=== PATIENT | female | born 1970 | race Caucasian/White ===

== ENCOUNTER 2022-08-15 09:10 | Outpatient (CLI) | payer OTHER, SELFPAY ==
[2022-08-15 19:17] LABS: Alanine Aminotransferase 36 U/L (6-35); Albumin Level 4.3 g/dL (3.5-5.1); Alkaline Phosphatase 139 U/L (38-126); Anion Gap 6 mmol/L (8-16); Aspartate Amino Transferase 30 U/L (14-36); Bilirubin,Total 0.3 mg/dL (0.2-1.3); Blood Urea Nitrogen 15 mg/dL (7-17); Carbon Dioxide 25 mmol/L (22-30); Chloride 106 mmol/L (98-107); Cholesterol 185 mg/dL (0-200); Estimated Glomerular Filt Rate > 60; Glucose 94 mg/dL (65-110); HDL Direct 52 mg/dL; Hematocrit 43.3 % (37.0-47.0); Hemoglobin 14.2 g/dL (12.0-15.0); Mean Corpuscular HGB Conc 32.8 g/dl (32-36); Mean Corpuscular Hemoglobin 29.3 pg (26-34); Mean Corpuscular Volume 89.3 fl (80-100); Mean Platelet Volume 9.7 fl (7.4-10.4); Platelet Count Result 232 k/mm3 (150-375); Potassium 4.1 mmol/L (3.4-5.0); Red Blood Count 4.85 M/mm3 (4.2-5.4); Red Cell Distribution Width 13.7 % (11.5-14.5); Sodium 137 mmol/L (137-145); Triglycerides 81 mg/dL (<150)
[2022-08-15 19:28] LABS: LDL Cholesterol Direct 95 mg/dL
== END 2022-08-15 09:11 | disposition home or self-care (01) ==
LOC: ANHGOSHLAB 09:11
PROVIDERS: PCP Family Medicine; Visit Provider Physician Assistant Medical
DX: E78.2 Mixed hyperlipidemia (principal); F41.9 Anxiety disorder, unspecified; R53.83 Other fatigue
CPT/HCPCS: 36415; 80053; 80061; 84443; 85027

== ENCOUNTER → 2022-08-15 09:45 | Outpatient (CLI) | payer OTHER, SELFPAY ==
--- NOTE | ~2022-08-15 | XR_ITS ---
Right Shoulder Technique: AP and scapular Y views were obtained. Clinical History: Pain Findings: No fracture or dislocation is seen. Osseous alignment is anatomic. The glenohumeral and acr omioclavicular joint spaces are preserved. Soft tissues are unremarkable. Impression: Unremarkable right shoulder radiographs. Reviewed, dictated and finalized at location [] BASE ADMINISTRATION ASSOCIATE Impression: Unremarkable right shoulder radiographs.
--- NOTE | ~2022-08-15 | XR_ITS ---
AP and lateral views of the right hip Clinical history: Pain Findings: No acute fracture or dislocation is seen. Osseous alignment is anatomic. Right hip and SI j oint spaces are preserved. Soft tissues are unremarkable. Impression: No significant abnormality is seen. Reviewed, dictated and finalized at location [] R WORKER Impression: No significant abnormality is seen.
== END ==
PROVIDERS: PCP Family Medicine; Visit Provider Physician Assistant Medical
DX: M25.551 Pain in right hip (principal); M25.511 Pain in right shoulder
CPT/HCPCS: 73030; 73502

== ENCOUNTER → 2022-08-28 13:32 | Outpatient (CLI) | payer OTHER, SELFPAY ==
--- NOTE | ~2022-08-28 | XR_ITS ---
EXAMINATION:XR_CERV2-3V_CR DATE: 08/28/2022 14:05 INDICATION: Neck pain TECHNIQUE: AP, lateral swimmers, and odontoid views of the cervical spine are provided. COMPARISON: 06/19/2009 FINDINGS: There is straightening of the cervical spine which can be positional or due to muscular spa sm. Alignment is normal. The odontoid is intact. No fracture is identified. The vertebral body height s are normal. There is mild loss of intervertebral disc space height at C5-6. Small degenerative oste ophytes project from the anterior endplates of multiple vertebral bodies. Prevertebral soft tissues a re normal. IMPRESSION: 1. Mild cervical spondylosis without acute findings. Reviewed, dictated and finalized at location L. ER TECH
--- NOTE | ~2022-08-28 | XR_ITS ---
EXAMINATION: XR lumbar spine 2-3V DATE: 08/28/2022 14:05 INDICATION: Low back pain TECHNIQUE: Anteroposterior and lateral views of the lumbar spine, and cone-down lateral view of the l umbosacral junction were obtained. COMPARISON: None. FINDINGS: There are 14 degrees of thoracolumbar levoscoliosis. There is no fracture. There are 2 mm o f anterolisthesis of L4 on L5. There is near complete anterior subluxation of L5 on S1. There is mode rate facet joint osteoarthritis of the lower lumbar spine. IMPRESSION: 1. Near complete anterior subluxation of L5 on S1. Surgical consultation is recommended. Reviewed, dictated and finalized at location L. LING MACHINE OPERATOR IMPRESSION: 1. Near complete anterior subluxation of L5 on S1. Surgical consultation is rec ommended.
== END ==
PROVIDERS: PCP Family Medicine; Visit Provider Physician Assistant Medical
DX: M79.2 Neuralgia and neuritis, unspecified (principal); M54.50 Low back pain, unspecified; S33.39XA Dislocation of other parts of lumbar spine and pelvis, initial encounter; M47.812 Spondylosis without myelopathy or radiculopathy, cervical region
CPT/HCPCS: 72040; 72100

== ENCOUNTER 2022-10-15 09:00 | Outpatient (RCR) | payer OTHER, SELFPAY ==
--- NOTE | 2022-09-02 09:21 | OTOPEVAL1 ---
Assessment and note entered by Yohan Pardo, CLAY/Toby, CHT Evaluation Information Assessment Status Evaluation Diagnosis Bilateral carpal tunnel syndrome Subjective Information Patient reports experiencing symptoms for about 6 months. 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 Right hand dominant. She typically has most of her pain with UE use and notices her arms are painful and tired at the end of the day. Notes difficulties with gripping and opening items and lifting heavier items. Reported Pain Level Pain Score 6,6: Self Report Additional Pain Score Comments Patient reports no pain at rest. Pain increases to 6/10 with wrist motion, particularly when radially deviating. She describes all pain as tightness and sore . No reports of tingling . Assessment OT Clinical Summary Fartun is a 52 year-old, right hand dominate female who is referred to hand therapy with gradual increase pain and weakness that has been going on for about 6 months. She has tightness with ROM of the wrists, positive Rohit's bilaterally, signs/symptoms of left lateral epicondylitis, and pain with radial nerve tensioning on the left as well. She will benefit from skilled OT for education and training on ergonomics, ROM, stretching, manual soft tissue mobilzation, and eventually strengthening to facilitate optimal functional use of B UEs. Plan of Care Interventions Therapeutic Exercise,Manual Therapy,Therapeutic Activities,Hot Pack/Cold Pack,Ultrasound,Paraffin OT Services Indicated Yes Treatment Frequency and 1-2x/week for 4 weeks. Duration These treatments will address the objective and functional deficits as defined above. The patient will be advanced safely and appropriately in order for the patient to progress towards his/her prior level of function. Additional exercises will be introduced and as well as a comprehensive home exercise program upon discharge, if needed, ?to ensure carryover of functional gains achieved in the clinic. This treatment plan has been reviewed and agreement upon by the patient.
--- NOTE | 2022-09-17 14:55 | PTOPEVAL1 ---
Assessment and note entered by Eavn Alston, PT Evaluation Information Assessment Status Evaluation Diagnosis R shoulder and hip pain Onset 3 months ago Subjective Information Patient reports R shoulder pain for 3 months and little longer 1 year for the R hip, she has had X- rays that she reports does not show any arthritis in the shoulder or hip, but that she thinks both are connected to her neck and back respectively. Neither are radiating. She reports she feels the hip after getting up in the morning or being in prolonged position while she feels the shoulder more after work. Reported Pain Level Pain Score 1,2: Self Report Pain Score 1,2,3,3: Self Report Additional Pain Score Comments L elbow, SHU wrist, R shoulder, R hip Assessment PT Clinical Summary Fartun is a 52 year old female coming into the clinic for R shoulder and R hip pain. She has decreased strength in SHU hips along with tenderness over the R greater trochanter. Patient 's neck and back appear fine and should not be causing radiating symptoms to either the shoulder or hip. The shoulder appears to have a positive response to the lift off test otherwise negative. Physical therapy will work on educating patient on posture, scapular and hip strengthening to go along with manual therapy and modalities for pain. Plan of Care Interventions Electrical Stimulation,Gait Training,Hot Pack/Cold Pack,Manual Therapy,Neuro Re-education,Patient/ Caregiver Education,Therapeutic Activities, Therapeutic Exercise Other Interventions taping PT Services Indicated Yes Treatment Frequency and 1x/wk for 4 weeks Duration These treatments will address the objective and functional deficits as defined above. The patient will be advanced safely and appropriately in order for the patient to progress towards his/her prior level of function. Additional exercises will be introduced and as well as a comprehensive home exercise program upon discharge, if needed, ?to ensure carryover of functional gains achieved in the clinic. This treatment plan has been reviewed and agreement upon by the patient.
--- NOTE | 2022-09-30 14:53 | OTOPDC ---
Assessment and note entered by Yohan Pardo, CLAY/Toby, CHT Evaluation Information Assessment Status Discharge Subjective Information Patient reports no longer experiencing elbow pain. She continues to report wrist/thumb pain on a daily basis. She does state the pain now does get down to 0/10 occasionally. She has not been able to wear wrist immobilizers, reporting that they are in the way of her fingers. She is ordering new ones that are shorter and just immobilize the thumb. She continues to have positive Rohit's bilaterally. Wrist ROM has improved to normal limits. Right service superintendent strength improved by 9 lbs. Left service superintendent strength remained unchanged. All testing for carpal tunnel syndrome were negative. Reported Pain Level Pain Score 3,3,0: Self Report Additional Pain Score Comments Bilateral wrist pain, localized to the 1st dorsal compartment. Assessment OT Clinical Summary Fartun is a 52 year-old, right hand dominate female who is referred to hand therapy with gradual increase pain and weakness that has been going on for about 6 months. She reports overall reduction in pain, but continues to have bilateral wrist pain on a daily basis. She reports that she will continue to complete her HEP and wear wrist braces to help with pain. Recommended to her and her dr' s office that she receives steroid injections in the 1st dorsal compartment bilaterally. Discharging today with patient independent with HEP. Plan of Care OT Services Indicated No
--- NOTE | 2022-10-15 09:47 | PTOPDC ---
Assessment and note entered by Evan Alston, PT Evaluation Information Assessment Status Discharge Diagnosis R shoulder and R hip pain Onset 4 months ago for the shoulder, 1 year for the hip pain Subjective Information Patient reports improvement in both. States her wrists are her main issues and she got new braces and potentially getting an injection for that. Patient reports she knows the exercises she needs to do to help herself and that although the manual helps she feels like it is not important enough to keep coming back to therapy. Is okay with being discharged from skilled physical therapy. Reported Pain Level Pain Score 2,2,2,2: Self Report Additional Pain Score Comments Patient states she has been at a 2 for the worst this last week in the hip and R shoulder. Assessment PT Clinical Summary Fartun is a 52 year old female coming into the clinic for R hip and shoulder pain. She reports that they are both feeling a lot better and she has met her pain goals, no longer has a positive lift off test, met her lower trap strength goal, and met a majority of her hip strengthening goal. At this time the patient appears that she will be able to do well with her HEP and does not need to come into the clinic. Discharged from skilled physical therapy. Plan of Care PT Services Indicated No Treatment Frequency and discharged from skilled physical therapy. Duration
== END 2022-10-15 11:02 | disposition home or self-care (01) ==
LOC: ANHPT 09:00
PROVIDERS: PCP Family Medicine; Visit Provider Physician Assistant Medical
DX: G56.03 Carpal tunnel syndrome, bilateral upper limbs (principal)
CPT/HCPCS: 97018; 97035; 97110; 97112; 97140; 97161; 97165; 97530

== ENCOUNTER 2023-10-01 09:48 | Outpatient (CLI) | payer OTHER, SELFPAY ==
[2023-10-01 13:33] LABS: Alanine Aminotransferase 28 U/L (6-35); Alkaline Phosphatase 129 U/L (38-126); Anion Gap 9 mmol/L (8-16); Aspartate Amino Transferase 33 U/L (14-36); Bilirubin,Total 0.5 mg/dL (0.2-1.3); Blood Urea Nitrogen 18 mg/dL (7-17); Calcium 9.3 mg/dL (8.4-10.2); Carbon Dioxide 25 mmol/L (22-30); Chloride 107 mmol/L (98-107); Cholesterol 198 mg/dL (0-200); Estimated Glomerular Filt Rate > 60; Glucose 96 mg/dL (65-110); HDL Direct 49 mg/dL; Sodium 141 mmol/L (137-145); Triglycerides 94 mg/dL (<150)
[2023-10-01 13:44] LABS: LDL Cholesterol Direct 122 mg/dL
== END 2023-10-01 09:49 | disposition home or self-care (01) ==
LOC: ANHGOSHLAB 09:51
PROVIDERS: PCP Family Medicine; Visit Provider Physician Assistant Medical
DX: E78.2 Mixed hyperlipidemia (principal); M99.13 Subluxation complex (vertebral) of lumbar region
CPT/HCPCS: 36415; 80053; 80061

== ENCOUNTER 2023-10-01 13:12 | Outpatient (CLI) | payer OTHER, SELFPAY ==
--- NOTE | ~2023-10-01 | XR_ITS ---
XR lumbar spine 2-3V DATE: 10/01/2023 13:50 INDICATION: Near complete anterior subluxation at L5-S1 TECHNIQUE: Supine AP, lateral, coned lateral lumbosacral views COMPARISON: None FINDINGS: Again noted is severe anterolisthesis of L5-S1, essentially unchanged since 08/28/2022. The lumbar vertebrae are otherwise normally aligned. There is mild levoscoliosis of the lower thoraci c and lumbar spine. With the exception of expected bilateral L5 pars interarticularis defects, no lumbar spine fracture o r bone destruction is noted. The sacral iliac joints are intact. IMPRESSION: Persistent severe anterolisthesis of L5-S1 Reviewed, dictated and finalized at location L. ILLERY MILLER
--- NOTE | ~2023-10-01 | XR_ITS ---
XR sacrum coccyx min 2V DATE: 10/01/2023 13:50 INDICATION: Severe anterolisthesis at L5-S1 TECHNIQUE: AP, angled AP and lateral views of sacrum and coccyx COMPARISON: None FINDINGS: Severe anterolisthesis at L5-S1. No sacral or coccygeal fracture or bone destruction is evident. Normal alignment at the pubic symphys is and sacroiliac joints. IMPRESSION: Severe anterolisthesis at L5-S1 Reviewed, dictated and finalized at location L. TICS TESTING TECHNICIAN
== END 2023-10-01 13:13 ==
LOC: MICIMG 13:14
PROVIDERS: PCP Physician Assistant Medical; Visit Provider Physician Assistant Medical
DX: M99.13 Subluxation complex (vertebral) of lumbar region (principal)
CPT/HCPCS: 72100; 72220

== ENCOUNTER 2023-10-21 12:51 | Outpatient (CLI) | payer OTHER, SELFPAY ==
--- NOTE | ~2023-10-21 | MR_ITS ---
EXAMINATION: MR lumbar spine wo con DATE: 10/21/2023 13:24 INDICATION: Subluxation complex of lumbar region. Low back pain. TECHNIQUE: Magnetic resonance imaging (MRI) of the lumbar spine was performed without intravenous con trast. Sequences included sagittal T2-weighted FSE, sagittal T2-weighted FS FSE, sagittal T1-weighted FSE, and axial T2-weighted FSE. COMPARISON: Lumbar spine radiographs 10/01/2023 FINDINGS: There is 18 degrees levoscoliosis of thoracolumbar spine. There are chronic bilateral L5 pa rs defects. There is 15 mm anterolisthesis of L5 on S1. There is mild chronic height loss of L5 verte bral body posteriorly. There is severely decreased disc height at L5-S1 with interbody fusion. There is mildly decreased disc height at L3-L4. The distal spinal cord signal intensity is normal. The conu s medullaris is at T12. The following disc levels are specifically discussed: L1-L2: The disc does not extend beyond the endplate margin. There is mild bilateral facet joint osteo arthritis. There is no neural foraminal stenosis. There is no central canal stenosis. L2-L3: There is a left foraminal protrusion. There is mild bilateral facet joint osteoarthritis. Ther e is mild left neural foraminal stenosis. There is no central canal stenosis. L3-L4: The disc is bulging. There is mild bilateral facet joint osteoarthritis. There is mild bilater al neural foraminal stenosis. There is mild central canal stenosis. L4-L5: The disc is bulging. There is severe bilateral facet joint osteoarthritis. There is mild bilat eral neural foraminal stenosis. There is no central canal stenosis. L5-S1: There is moderate bilateral facet joint hypertrophy. There is moderate bilateral neural forami nal stenosis. There is no central canal stenosis. IMPRESSION: 1. Moderate lower lumbar spondylosis. 2. Interbody fusion at L5-S1. 3. Thoracolumbar levoscoliosis. Reviewed, dictated and finalized at location E. CTOR OF MANUFACTURING
== END 2023-10-21 12:52 ==
PROVIDERS: PCP Physician Assistant Medical; Visit Provider Physician Assistant Medical
DX: M99.13 Subluxation complex (vertebral) of lumbar region (principal); M43.06 Spondylolysis, lumbar region; M43.27 Fusion of spine, lumbosacral region; M41.85 Other forms of scoliosis, thoracolumbar region
CPT/HCPCS: 72148

== ENCOUNTER 2024-12-29 09:08 | Outpatient (CLI) | payer OTHER, SELFPAY ==
--- OUTSIDE RECORDS SUMMARY | 2024-12-29 09:27 | XMS_ITS | Data Portability ---
Author Organization [facility] [place] Address [address] [place] [address] Care Team Providers Care Air Tube Releaser Name Role Phone PERLA RAMON Primary Care Provider [phone] Assessment Encounter Date Assessment Date Assessment LastModified by Organization Details LastModified Time 09/24/2021 09/24/2021 Annual gynecological exam performed. Patient will come back in a year unless there are new symptoms. Not available 09/24/2021 09:59:50 10/21/2022 10/21/2022 Annual gynecological exam performed. Patient will come back in a year unless there are new symptoms. [email or web address] Not available 10/21/2022 09:53:59 10/22/2023 10/22/2023 Annual gynecological exam performed. Patient will come back in a year unless there are new symptoms. Not available 10/22/2023 11:26:39 11/10/2024 11/10/2024 Annual gynecological exam performed. Patient will come back in a year unless there are new symptoms. [email or web address] Not available 11/10/2024 10:32:57 Plan of Treatment Reminders Order Date Submit Date Provider Last Modified By Organization Details Last Modified Time Details Appointments None recorded. Lab pap, IG + HR HPV - HPV regardless but if HPV is positive need subtyping 16,18/45 2024 025 [facility] (Lab), [address], [place], [address], 15:41:43 TSH, serum or plasma 2021 022 [facility] (Lab), [address], [place], [address], 2 03:06:24 hormone panel, serum or plasma 2021 022 [facility] (Lab), [address], [place], [address], 2 03:06:24 Referral None recorded. Procedures colonoscop y procedure (PROC) 2024 025 [facility], [id number], [place], [address], 5 11:19:36 Surgeries None recorded. Imaging MAMMO, screening, digital, bilateral 2024 025 [facility], [id number], [place], [address], 5 04:02:51 MAMMO, screening, bilateral [address], [id number], [place], [address], 5 09:13:01 Medication Orders Prempro 0.3 mg-1.5 mg tablet 2022 023 [facility], [address], [place], [address], 3 12:05:45 Patient TargetsNo targets recorded. Patient InstructionsNo instructions recorded. Reason for Referral None Reported. Results Created Date Observation Date Name Description Value Unit Range Abnormal Flag Note LastModifiedBy Organization Detail LastModifiedTime 09/24/19 22 09/24/2021 IMAGE GUIDE D PAP AND HPV REGAR DLESS image guided Pap, HPV regardless of Pap result SEE RESULT S BELOW CASE REPOR T: Cytol ogy Gynec ologi neal Repor t Case: [id number] Autho daraolman marva Provi eloisa: Avery Buitrago Colle cted: 09/24 1522 CREATIVE ART DIRECTOR Order ing Locat ion: [place] Patho logy Recei ivone: 09/25 0057 First Scree n: Ashley Barton ret, CT Rescr een: Werner Robin, CT Speci men: Lorenzo starkey Pap - Image d, Cervi x STATE MENT OF ADEQU ACY: Satis facto ry for evalu ation Trans forma tion zone compo nent prese nt FINAL DIAGN OSIS: Negat estefani for Intra epith elial Malachi thurman or Orion desai (NIL) . Elect bharat lutz bryce d by Werner Robin, CT on 022 at 3:09 PM ----- ----- ----- ----- ----- ----- ----- ----- ----- ----- ----- ----- ----- ----- ----- ----- ----- ---- HPV RESUL TS: HPV mRNA E6/E7 : No HPV mRNA Detec tanesha NOTE: This high risk HPV mRNA assay detec ts fourt een high- risk HPV types (16, 18, 31, 33, 35, 39, 45, 51, 52, 56, 58, 59, 66, 68) witho ut diffe renti ation . COMME NT: Note: This speci men was revie wed by a Cytot echno logis t and/o r Patho logis t (as indic ated in this repor t) after evalu ation using the Thinp rep Imagi ng Syste m. CLINI NEAL INFOR MATIO N: Menst rual Statu s: LMP (if appli cable ): Clini neal Histo ry/Pr eviou s Pap: Type of Neopl aissatou (if appli cable ): Signi fican t Clini neal Findi ngs: Other Histo ry: Hormo roni (if appli cable ): PAP EDUCA FAVIO L NOTE: The Pap Test is a scree jaky test with an inher ent false negat estefani rate. Liqui d-bas ed sampl ing may decre ase, but will not elimi tom, false negat estefani resul ts. A negat estefani resul t does not precl ude the prese nce and/o r devel opmen t of disea se, since the prese nce of abnor mal cells in the sampl e depen ds on the locat ion of the lesio n and sampl ing techn ique. Hiren nued regul ar scree jaky is the best metho d of cance r preve ntion . If repor tanesha cytol ogic findi ng do not corre late with physi neal and/o r histo rical findi ngs, furth er inves tigat ion is recom tiago d, as clini gutierrez gutiérrez nted. Not Available [facility] (Lab) [address], [place], [address], 10/01/2021 16:11:47 12/24/19 22 12/23/2021 TSH, REFLE X FREE T4 TSH 2.00 uIU/m L 0.30-5 .33 Not Available [facility] (Lab) [address], [place], [address], 12/24/2021 03:06:24 12/24/19 22 12/23/2021 FSH, LH, ESTRA DIOL estradiol <5.0 pg/mL This assay was perfo rmed using [employer] ratio n reage nts and test kits. Value s obtai shakira with other assay metho ds or kits canno t be used inter cisse eably . Femal e Estra diol Range s: Folli cular phase 12.4- 233 pg/mL Ovula tion phase 41.0- 398 pg/mL Lutea l phase 22.3- 341 pg/mL Postm enopa usal< 5-138 pg/mL Healt hy Pregn ant Women 1st Trime ster1 54-32 43 pg/mL 2nd Trime ster1 561-2 1280 pg/mL 3rd Trime ster8 525-> 18712 pg/mL Not Available [facility] (Lab) [address], [place], [address], 12/24/2021 03:06:24 12/24/19 22 12/23/2021 FSH, LH, ESTRA DIOL FSH 107.0 mIU/m L This assay was perfo rmed using [employer] reage nts and test kits. Value s obtai shakira with other assay metho ds or kits canno t be used inter cisse eably . Femal es Folli cular : 3.5-1 2.5 mIU/m L Ovula tion: 4.7-2 1.5 mIU/m L Lutea l: 1.7-7 .7 mIU/m L Postm enopa use: 25.8- 134.8 mIU/m L Not Available [facility] (Lab) [address], [place], [address], 12/24/2021 03:06:24 12/24/19 22 12/23/2021 FSH, LH, ESTRA DIOL LH 50.2 mIU/m L This assay was perfo rmed using [employer] reage nts and test kits. Value s obtai shakira with other assay metho ds or kits canno t be used inter [facility] eaeunice . Femal es Mid-F ollic ular: 2.4-1 2.6 mIU/m L Mid-C ycle: 14.0- 95.6 mIU/m L Mid-L uteal : 1.0-1 1.4 mIU/m L Postm enopa use: 7.7-5 8.5 mIU/m L Not Available [facility] (Lab) [address], [place], [address], 12/24/2021 03:06:24 10/21/19 23 10/21/2022 IMAGE GUIDE D PAP AND HPV REGAR DLESS image guided Pap, HPV regardless of Pap result SEE RESULT S BELOW CASE REPOR T: Cytol ogy Gynec ologi neal Repor t Case: [id number] Autho aman durham Provi eloisa: Avery Buitrago Colle cted: 10/21 1414 CREATIVE ART DIRECTOR Order ing Locat ion: [place] Patho logneelima Recei ivone: 10/22 0748 First Scree n: Ashutosh Bowers ed, CT Speci men: Lorenzo starkey Pap - Image d, Cervi x STATE MENT OF ADEQU ACY: Satis facto ry for evalu ation Trans forma tion zone compo nent canno t be defin itive ly ident ified due to the prese nce of atrop hy or other hormo nal cisse es FINAL DIAGN OSIS: Negat estefani for Intra epith elial Lesio n or Orion desai (NIL) . Atrop hic cell madeline dobson. Tiburcio lutz bryce d by Ashutosh Bowers ed, CT on 2022 at 8:04 PM ----- ----- ----- ----- ----- ----- ----- ----- ----- ----- ----- ----- ----- ----- ----- ----- ----- ---- HPV RESUL TS: HPV mRNA E6/E7 : No HPV mRNA Detec tanesha NOTE: This high risk HPV mRNA assay detec ts fourt een high- risk HPV types (16, 18, 31, 33, 35, 39, 45, 51, 52, 56, 58, 59, 66, 68) witho ut diffe renti ation . COMME NT: Note: This speci men was revie wed by a Cytot echno logis t and/o r Patho logis t (as indic ated in this repor t) after evalu ation using the Thinp rep Imagi ng Syste m. CLINI NEAL INFOR MATIO N: Menst rual Statu s: LMP (if appli cable ): Clini neal Histo ry/Pr eviou s Pap: Type of Neopl aissatou (if appli cable ): Signi fican t Clini neal Findi ngs: Other Histo ry: Hormo roni (if appli cable ): PAP EDUCA FAVIO L NOTE: The Pap Test is a scree jaky test with an inher ent false negat estefani rate. Liqui d-bas ed sampl ing may decre ase, but will not elimi tom, false negat estefani resul ts. A negat estefani resul t does not precl ude the prese nce and/o r devel opmen t of disea se, since the prese nce of abnor mal cells in the sampl e depen ds on the locat ion of the lesio n and sampl ing techn ique. Hiren nued regul ar scree jaky is the best metho d of cance r preve ntion . If repor tanesha cytol ogic findi ng do not corre late with physi neal and/o r histo rical findi ngs, furth er inves tigat ion is recom tiago d, as clini gutierrez gutiérrez nted. Not Available [facility] (Lab) [address], [place], [address], 10/23/2022 21:11:15 10/22/19 24 10/22/2023 IMAGE GUIDE D PAP AND HPV REGAR DLESS image guided Pap, HPV regardless of Pap result SEE RESULT S BELOW CASE REPOR T: Cytol ogy Gynec ologi neal Repor t Case: [id number] Autho aman durham Provi eloisa: Avery Buitrago Colle cted: 10/22 1352 CREATIVE ART DIRECTOR Order ing Locat ion: [place] Patho logy Recei ivone: 10/23 0635 First Scree n: Noora ni, Moham ed, CT Rescr een: Robin Paez Speci men: Scree jaky Pap - Image d, Cervi x STATE MENT OF ADEQU ACY: Unsat isfac tory for evalu ation . FINAL DIAGN OSIS: Unsat isfac tory for evalu ation . Scant squam ous cellu larit y due to exces s inter ferin g nelsyri cant. Elect bharat lutz bryce d by Robin Paez on 2023 at 8:42 AM ----- ----- ----- ----- ----- ----- ----- ----- ----- ----- ----- ----- ----- ----- ----- ----- ----- ---- HPV RESUL TS: HPV mRNA E6/E7 : No HPV mRNA Detec tanesha NOTE: This high risk HPV mRNA assay detec ts fourt een high- risk HPV types (16, 18, 31, 33, 35, 39, 45, 51, 52, 56, 58, 59, 66, 68) witho ut diffe renti ation . COMME NT: This speci men was revie wed by a Cytot echno logis t and/o r Patho logis t (as indic ated in this repor t) after evalu ation using the Thinp rep Imagi ng Syste m. 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 Atrop hic cell madeline rn. Elect bharat wu d by Monie Pisano, CT on 2024 at 1437 CDT ----- ----- ----- ----- ----- ----- ----- ----- ----- ----- ----- ----- ----- ----- ----- ----- ----- ---- HPV RESUL TS: HPV mRNA E6/E7 : No HPV mRNA Detec tanesha NOTE: This high risk HPV mRNA assay detec ts fourt een high- risk HPV types (16, 18, 31, 33, 35, 39, 45, 51, 52, 56, 58, 59, 66, 68) witho ut diffe renti ation . COMME NT: This speci men was revie wed by a Cytot echno logis t and/o r Patho logis t (as indic ated in this repor t) after evalu ation using the Thinp rep Imagi ng Syste m. CLINI NEAL INFOR MATIO N: Menst rual Statu s: LMP (if appli cable ): Clini neal Histo ry/Pr eviou s Pap: Type of Neopl aissatou (if appli cable ): Signi ficlolita t Clini neal Findi ngs: Other Histo ry: Hormo roni (if appli cable ): PAP EDUCA FAVIO L NOTE: The Pap Test is a scree jaky test with an inher ent false negat estefani rate. Liqui d-bas ed sampl ing may decre ase, but will not elimi tom, false negat estefani resul ts. A negat estefani resul t does not precl ude the prese nce and/o r devel opmen t of disea se, since the prese nce of abnor mal cells in the sampl e depen ds on the locat ion of the lesio n and sampl ing techn ique. Hiren nued regul ar scree jaky is the best metho d of cance r preve ntion . If repor tanesha cytol ogic findi ng do not corre late with physi neal and/o r histo rical findi ngs, furth er inves tigat ion is recom tiago d, as clini gutierrez gutiérrez nted. Not Available [facility] (Lab) [address], [place], [address], 11/15/2024 15:41:43 01/17/20 22 01/16/2022 MAMMO , scree jaky, bilat eral No observ ation record ed. [facility] [address] [place] [address], [address], 01/31/2022 11:41:58 Result Notes None recorded. Problems Name Problem SNOMED Code Status Onset Date Resolution Date Notes Provider Name and Address Organization Details Recorded Time Screenin g for malignan t neoplasm of cervix Completed 201109/23/2021 Pap Smear;Pra ctice ID: 0001 Stacie barr [facility] 2 19:53:58 Screenin g for malignan t neoplasm of rectum Completed 201109/23/2021 Screening for malignant neoplasms of the rectum;Pr actice ID: 0001 Stacie barr [facility] 2 19:54:01 Irregula r periods [id number] Completed 201209/23/2021 Irregular menstrual cycle;Pra ctice ID: 0001 Stacie barr [facility] 2 19:53:38 Speciali zed medical examinat ion Completed 201209/23/2021 Routine gynecolog ical examinati on;Practi ce ID: 0001 Stacie barr [facility] 2 19:54:10 Noninfla mmatory cervical disorder [id number] Completed 201309/23/2021 Other specified noninflam matory disorders of cervix;Pr actice ID: 0001 Stacie barr [facility] 19:53:43 Premenop ausal menorrha bianka Completed 201309/23/2021 Premenopa usal menorrhag ia;Practi ce ID: 0001 Stacie barr [facility] 19:53:55 Pre-surg kole evaluati on Completed 201309/23/2021 Pre-opera tive examinati on, unspecifi ed;Practi ce ID: 0001 Stacie barr [facility] 19:53:51 Uterine leiomyom a [id number] Completed 201309/23/2021 Leiomyoma of uterus, unspecifi ed;Practi ce ID: 0001 Stacie barr [facility] 19:54:13 Postoper ative follow-u p visit Completed 201309/23/2021 Follow Up Surgery;Octavio bhakta ID: 0001 Stacie barr [facility] 2 19:53:48 Overweig ht [id number] Completed 201409/23/2021 Overweigh t;Practic e ID: 0001 Stacie barr [facility] 2 19:53:[address] Concept Completed 201509/23/2021 Encntr for precision lens polisher exam (general) (routine) w/o abn findings; Practice ID: 0001 Stacie barr [facility] 2 19:54:07 Atypical squamous cells of undeterm ined signific ance on cervical Papanico laou smear [id number] Completed 201809/23/2021 Atyp squam cell of undet signfc cyto smr crvx (ASC-US); Practice ID: 0001 Stacie Mcdonald [facility] 2 19:53:25 Benign neoplasm of skin of trunk [id number] Completed 201709/23/2021 Other benign neoplasm of skin of trunk;Pra ctice ID: 0001 Stacie Mcdonald [facility] 2 19:53:27 Finding by site Completed 201709/23/2021 Dermatiti s, unspecifi ed;Practi ce ID: 0001 Stacie Mcdonald [facility] 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 2 19:53:[address] Concept Completed 201709/23/2021 Encntr for general adult medical exam w/o abnormal findings; Recorded Elsewhere : No Locati on: [facility] So urce: EHR Chron ic: N Practic e ID: 0001 Bill able Time: 08:30:00 AM Stacie Mcdonald [facility] 2 19:54:03 Disorder of skin and/or subcutan eous tissue 78651803 Completed 201709/23/2021 Disorder of the skin and subcutane ous tissue, unspecifi ed;Record ed Elsewhere : No Locati on: [facility] So urce: EHR Chron ic: N Practic e ID: 0001 Bill able Time: 02:00:00 PM Stacie Mcdonald null, [facility] 2 19:53:32 Body mass index 25-29 - overweig [id number] Completed 201709/23/2021 Body mass index (BMI) 29.0-29.9 , adult;Rec orded Elsewhere : No Locati on: [facility] So urce: EHR Chron ic: N Practic e ID: 0001 Bill able Time: 08:30:00 AM [facility] 19:53:29 Problem Notes None recorded. Procedures Surgical History Date Name Laterality Status Provider Name and Address Organization Details Recorded Time 10/22/19 24 Date of Last Pap Smear completed [facility] 10/22/2023 11:30:31 08/31/19 14 hysteroscopy completed [facility] 09/15/2020 09:27:40 08/31/19 11 biopsy of breast completed [facility] 09/15/2020 09:27:03 08/31/18 92 LEEP completed [facility] 10/22/2023 11:31:52 Imaging Results Imaging Date Name Status LastModified by Organiz ation Details LastModified Time 01/16/2022 MAMMO, screening, bilateral completed [facility] [address] [place] [address], [address], 01/31/2022 11:41:58 Procedure Notes None recorded. Medical Equipment None Reported. Allergies No known drug allergies Medications Name Sig Start Date Stop Date Status Note LastModified by Organization Details LastModified Time cyclobenz aprine 10 mg tablet TAKE 1 TABLET BY MOUTH THREE TIMES A DAY NEEDED FOR MUSCLE SPASM 01/27 completed Not Available Not Available Not Available Aviane 0.1 mg-20 mcg tablet take 1 tablet by oral route every day 06/25 completed Prescrib ed Elsewher e: No Locat ion: [facility] M odify By: gmedical Encount er DateTime : 04/21/20 12 10:09:17 AM Not Available Not Available Not Available Apri 0.15 mg-0.03 mg tablet TAKE 1 TABLET BY MOUTH EVERY DAY 09/24 completed Not Available Not Available Not Available meloxicam 15 mg tablet TAKE 1 TABLET BY MOUTH DAILY 10/21 completed Not Available Not Available Not Available Edith (28) 3 mg-0.03 mg tablet take 1 tablet by oral route every day 04/21 completed Prescrib ed Elsewher e: No Locat ion: Vivien neff [facility] M odify By: gmedical Encount er DateTime : 12/12/19 12 08:43:12 AM Not Available Not Available Not Available naproxen 500 mg tablet TAKE 1 TABLET BY MOUTH 2 TIMES PER DAY. TAKE WITH FOOD. 10/22 completed Not Available Not Available Not Available Prempro 0.3 mg-1.5 mg tablet TAKE 1 TABLET BY MOUTH EVERY DAY FOR 30 DAYS 01/27 completed Not Available Not Available Not Available sodium fluoride 1.1 % dental paste USE A PEA SIZE AMOUNT TO BRUSH TEETH EVERY NIGHT AND EXPECTOR ATE active Not Available Not Available No t Available Lo Loestrin Fe 1 mg-10 mcg (24)/10 mcg (2) tablet take 1 tablet by oral route every day 04/21 completed Prescrib ed Elsewher e: Yes Loca tion: [facility] M odify By: gmedical Encount er DateTime : 12/23/19 12 08:30:00 AM Not Available Not Available Not Available Flublok Quad (PF) 180 mcg (45 mcg x 4)/0.5 mL IM syringe PHARMACY ADMINIST ERED 09/17 completed Not Available Not Available Not Available Vitals Date Recorded Body height Body mass index (BMI) Body weight Systolic blood pressure Diastolic blood pressure Provider Name and Address Organization Details Last Updated DateTime 09/24/2021 162.56 cm 31.4 kg/m2 84723.4 g 140 mm[Hg] 80 mm[Hg] Stacie Mcdonald [facility] 10:02:31 Date Recorded Systolic blood pressure Diastolic blood pressure Provider Name and Address Organization Details Last Updated DateTime 09/24/2021 124 mm[Hg] 80 mm[Hg] Subha Monk [facility] [address], [place], [address], [facility] 09/24/2021 10:32:45 Date Recorded Body height Body mass index (BMI) Body weight Provider Name and Address Organization Details Last Updated DateTime 10/21/2022 162.56 cm 33.6 kg/m2 53066.1 g Ursula Leal [facility] 10/21/2022 09:54:08 Date Recorded Systolic blood pressure Diastolic blood pressure Provider Name and Address Organization Details Last Updated DateTime 10/21/2022 126 mm[Hg] 78 mm[Hg] Subha Monk [facility] [address], [place], [address], [facility] 10/21/2022 10:42:33 Date Recorded Body height Body mass index (BMI) Body weight Provider Name and Address Organization Details Last Updated DateTime 01/27/2023 162.56 cm 33.5 kg/m2 86875.51 g Blanca Medina [facility] 01/27/2023 12:05:13 Date Recorded Systolic blood pressure Diastolic blood pressure Provider Name and Address Organization Details Last Updated DateTime 01/27/2023 130 mm[Hg] 80 mm[Hg] Subha Monk [facility] [address], [place], [address], [facility] 01/27/2023 12:14:35 Date Recorded Body height Body mass index (BMI) Body weight Systolic blood pressure Diastolic blood pressure Provider Name and Address Organization Details Last Updated DateTime 10/22/2023 162.56 cm 33.4 kg/m2 65225.08 g 113 mm[Hg] 74 mm[Hg] Blanca Medina [facility] 11:29:33 Date Recorded Body height Body mass index (BMI) Body weight Systolic blood pressure Diastolic blood pressure Provider Name and Address Organization Details Last Updated DateTime 11/10/2024 162.56 cm 30.7 kg/m2 32294.32 g 139 mm[Hg] 80 mm[Hg] Angela Pope [facility] 10:38:46 Social History Question Answer Notes LastModified by Organizat ion Details LastModified Time Tobacco Smoking Status Never Smoker aMrlene Sawyer cortney, [facility] 01/27/2023 12:00:09 Do You Have An Advance Directive? Yes [email or web address] Information n ot available 11/10/2024 What Is Your Level Of Alcohol Consumption? Occasional Information not available 09/17/2020 How Many Years Have You Consumed Alcohol? 35 [email or web address] Information not available 11/10/2024 Are You Blind Or Do You Have Difficulty Seeing? No Information n ot available 09/23/2021 What Is Your Level Of Caffeine Consumption? Moderate Information not available 09/17/2020 How Much Tobacco Do You Chew? None Information not available 09/24/2021 In The 14 Days Before Symptom Onset, Have You Had Close Contact With A Laboratory-confirm ed COVID-19 While That Case Was Ill? No Information n ot available 09/24/2021 In The 14 Days Before Symptom Onset, Have You Had Close Contact With A Person Who Is Under Investigation For COVID-19 While That Person Was Ill? No Information not available 09/24/2021 Have You Been To An Area Known To Be High Risk For COVID-19? No Information not available 09/24/2021 Are You Deaf Or Do You Have Serious Difficulty Hearing? No Information not available 09/23/2021 What Type Of Diet Are You Following? REGULAR Information n ot available 09/23/2021 What Is The Highest Grade Or Level Of School You Have Completed Or The Highest Degree You Have Received? [id number] Information not available 09/24/2021 What Is Your Occupation? Retired Information not available 10/22/2023 How Many Days Of Moderate To Strenuous Exercise, Like A Brisk Walk, Did You Do In The Last 7 Days? 1 [email or web address] Information not available 01/27/2023 On Those Days That You Engage In Moderate To Strenuous Exercise, How Many Minutes, On Average, Do You Exercise? 60 Information not available 01/27/2023 Are There Any Guns Present In Your Home? No Information not available 09/24/2021 Have You Ever Been Counseled For Unhealthy Alcohol Use? No [email or web address] Information not available 01/27/2023 Do You Use Protection During Sex? No Information not available 09/24/2021 Do You Use Your Seat Belt Or Car Seat Routinely? Yes Information not available 09/23/2021 Do You Have Smoke And Carbon Monoxide Detectors In Your Home? Yes Information not available 09/23/2021 How Much Tobacco Do You Smoke? No Information not available 09/24/2021 Do You Feel Stressed (tense, Restless, Nervous, Or Anxious, Or Unable To Sleep At Night)? [id number] Information not available 09/24/2021 Do You Use Any Illicit Or Recreational Drugs? No Information not available 09/17/2020 Do You Use Sunscreen Routinely? Yes Information not available 09/23/2021 Has Tobacco Cessation Counseling Been Provided? No [email or web address] Information not available 01/27/2023 Have You Used IV Drugs? No Information not available 09/24/2021 Do You Or Have You Ever Used Any Other Forms Of Tobacco Or Nicotine? No Information not available 01/27/2023 How Many Days In The Past Year Have You Consumed 4 Or More Drinks? 0 [email or web address] Information not available 01/27/2023 Sex: Unknown Functional Status Question Answer Note LastModified by Organization D etails LastModified Time Are you able to walk? [email or web address] Information not available 09/23/2021 What is your exercise level? Moderate [email or web address] Information not available 11/10/2024 Mental Status None recorded. Family History Relationship Description Onset Age of this Age Resolved Age Notes LastModified by Organization Details LastModified Time Mother Carcinoma in situ of breast Not available 2024 10:29:08 Mother Lumpectomy of breast [email or web address] Not available 03/13/ 2025 10:29:08 Mother Diabetes mellitus Not available 2020 09:26:10 Mother Retinal detachment [email or web address] Not available 11/10 10:29:08 Mother Myocardial infarction [email or web address] Not available 10/21 09:54:21 Mother Malignant tumor of breast [email or web address] Not available 2022 09:54:22 Paternal Grandmother Carcinoma in situ of breast [email or web address] Not available 2024 10:29:08 Father Hypertensive disorder Not available 2020 09:26:31 Medical History Condition Response Breast Problem Y Other Y Gynecological History Statement/Question Response Abnormal Pap Y Flow Light Date of Last Mammogram Date of LMP 05/31/2021 N On BCP's at Conception? N STIs/STDs N Was last menstrual period normal Y HPV Vaccine N Duration of Flow (days) 3 Current Control Method Menopause Age at First Child 25 If Post Menopausal, Age at Menopause 51 Date of Last Colonoscopy Frequency of Cycle (Q days) 30 Sexually Active? Y None Menses Monthly N Age of first menstrual cycle 12 Date of Last Pap Smear 10/22/2023 Sexual Problems? N LMP Approximate N Obstetrics History GPAL:G 2 P 2 0 0 2 Type Value Full Term 2 Living 2 Total 2 Past Encounters Encounter ID Performer Location Encounter Start Date Encounter Closed Date Diagnosis/Indication Diagnosis SNOMED-CT Code Diagnosis ICD10 Code Diagnosis Note [id number] Subha Monk [facility] [address] [address] 09/17/2020 10:07:20 09/17/2020 10:54:25 Gynecologic examination [id number] Z01.419 Take Calcium with Vitamin D 12-1500mg daily. Do monthly self breast exams. It is advised to get annual flu shot in the fall and she could obtain at [facility] or [facility] clinic. If you haven't received the Tdap vaccine in the last 10 years you should obtain one as well. Have mammogram yearly, bone density every 2-3 years and colonoscop y every 5-10 years depending on findings and history. Engage in daily exercise of low impact aerobic exercise 45-60 minutes 4-5 times weekly. Avoid tobacco and illicit drugs as well as using moderation with alcohol intake less than 1-2 8 oz beverages daily. This lifestyle behavior pattern will lead to less health conditions and longer life span. If BMI greater than 25 weight watchers or dietary consult advised. Questions have been answered. Patient appears to understand instructio ns, but if you have any further questions call or respond to this email Hx of Abn pap/hpv with LEEP Wants to pursue pap/hpv this year. Mammo given UTD Colon We discussed need to d/c OCP's next year since will be 51yo close to 52yo, see if in menpause after 3mos with FSH/LH, and if still need BC can discuss further options at that time. She agrees. [id number] Subha Monk , [facility] [address] [address] 09/24/2021 09:49:22 09/24/2021 10:48:16 Gynecologic examination [id number] Z01.419 Take Calcium with Vitamin D 12-1500mg daily. Do monthly self breast exams. It is advised to get annual flu shot in the fall and she could obtain at [facility] or [facility] care clinic. If you haven't received the Tdap vaccine in the last 10 years you should obtain one as well. Have mammogram yearly, bone density every 2-3 years and colonoscop y every 5-10 years depending on findings and history. Engage in daily exercise of low impact aerobic exercise 45-60 minutes 4-5 times weekly. Avoid tobacco and illicit drugs as well as using moderation with alcohol intake less than 1-2 8 oz beverages daily. This lifestyle behavior pattern will lead to less health conditions and longer life span. If BMI greater than 25 weight watchers or dietary consult advised. Questions have been answered. Patient appears to understand instructio ns, but if you have any further questions call or respond to this email Hx of Abn pap/hpv with LEEPPap/hp v sentSTD declinedMa mmo givenColog uard-bryce dGenetic screen discussed- recommende d. Will consider moving forward. Irregular periods [id number] N92.6 D/C OCP's.Comp lete labs to assess ovarian function x 90d. [id number] Subha Monk [facility] [address] [address] 10/21/2022 09:33:13 10/21/2022 11:16:44 Gynecologic examination [id number] Z01.419 Z11.51 Take Calcium with Vitamin D 12-1500mg daily. Do monthly self breast exams. It is advised to get annual flu shot in the fall and she could obtain at [facility] or [facility] care clinic. If you haven't received the Tdap vaccine in the last 10 years you should obtain one as well. Have mammogram yearly, bone density every 2-3 years and colonoscop y every 5-10 years depending on findings and history. Engage in daily exercise of low impact aerobic exercise 45-60 minutes 4-5 times weekly. Avoid tobacco and illicit drugs as well as using moderation with alcohol intake less than 1-2 8 oz beverages daily. This lifestyle behavior pattern will lead to less health conditions and longer life span. If BMI greater than 25 weight watchers or dietary consult advised. Questions have been answered. Patient appears to understand instructio ns, but if you have any further questions call or respond to this email Hx of Abn pap/hpv with LEEPPap/hp v sentSTD declinedMa mmo scheduled & ordered by PCPCologua rd- WNL PCPGenetic screen discussed- recommende d. Will consider moving forward.Salma perez UTD PCP Menopausal symptom 80169 [id number] N95.1 We discussed Menopausal Hormone therapy (MHT) for women with intact uterus with the goals of reliving vaso-motor sx's using estrogen/p rogestin therapy (EPT) using lowest doses for shortest duration in women 40-59yo. Contraindi cations include: Hx of DVT or thrombolic events, High cholestero l, Hx of breast cancer, known CHD, active liver disease, unexplaine d vag bleeding, high risk endometria l cancer, TIA. Side effects can include but are not limited to: Irregular vag bleeding,, breast tenderness , nausea, weight changes, libido changes, nausea. Adverse Rxn: Elevated BP migraine w/ visual changes, breast cancer dx, TX/stroke, DVT/PE, Endometria l cancer. Please contact office with any new or worsening side effects or adverse reactions. Or if a medical emergency please go to nearest ED/[facility] care for further evaluation . RTO x 3mos med check [id number] Subha Monk [facility] [address] [address] 10/22/2023 11:20:58 10/22/2023 12:00:45 Gynecologic examination [id number] Z01.419 Z11.51 Take Calcium with Vitamin D 12-1500mg daily. Do monthly self breast exams. It is advised to get annual flu shot in the fall and she could obtain at [facility] or [facility] clinic. If you haven't received the Tdap vaccine in the last 10 years you should obtain one as well. Have mammogram yearly, bone density every 2-3 years and colonoscop y every 5-10 years depending on findings and history. Engage in daily exercise of low impact aerobic exercise 45-60 minutes 4-5 times weekly. Avoid tobacco and illicit drugs as well as using moderation with alcohol intake less than 1-2 8 oz beverages daily. This lifestyle behavior pattern will lead to less health conditions and longer life span. If BMI greater than 25 weight watchers or dietary consult advised. Questions have been answered. Patient appears to understand instructio ns, but if you have any further questions call or respond to this email Hx of Abn pap/hpv with LEEPPap/hp v sentSTD declinedMa mmo ordered due olo guard- WNL PCP due 2025Geneti c screen discussed- recommende d. Will consider moving forward.Salma perez UTD PCP Screening mammography 24 602346 Z12.31 [id number] JOVANA Velez-[facility] [address] [address] 01/27/2023 11:59:02 01/27/2023 12:19:06 Menopausal symptom 14972167 N95.1 Today we reviewed medication HRT.She ran out 10 days ago & has decided that she does not feel it has changed anything that much. Her vasomotor sx's are minimal and she feels she would like to d/c this at this time.If over time feels this medication did more than what she thought she is welcome to contact us and we can send out some RF s as long as it is within the year.Monit or for nowKeep menopausal diary. Time spent in visit is a total of 15 mins with at least 50% of visit consisting of counseling and review of plan of care. [id number] Ángel Landin MD [place] [address] [address] 11/10/2024 10:28:51 11/10/2024 11:03:21 Gynecologic examination [id number] Z01.419 Annual gynecologi neal exam performed. Patient will come back in a year unless there are new symptoms. Suggest Calcium with Vitamin D if not eating in diet. Patient advised to get annual flu shot. Recommend yearly physicals and perform monthly breast exams. Genetic testing is available for patients with family history of cancer. Engage in safe sexual practices, use condoms. Encouraged to have daily exercise. Avoid tobacco and illicit drugs, moderation of alcohol. If BMI greater than 25 dietary consult advised. If you have any questions please call or email. mammogram- order given, pt to schedule colon cancer screening - due; GI referral for colonoscop y to [facility] DEXA scan- n/a Pap smear- pap w/ HPV collected laboratory evaluation - PCP STI testing - declined Screening mammography 24 600664 Z12.31 Screening for malignant neoplasm of colon [id number] Z12.11 Health Concerns Section Related Observation LastModified by Organization Detai ls LastModified Time None Recorded Concern Status LastModified by Organization Details LastModified Time None Recorded Advance Directives Directive Y: Payers Encounter Date Sequence Insurance Name Policy Number Policy Ortiz Covered Member ID Ortiz Member ID Guarantor Name 09/24/2021 1 [facility] [id number] Chaparro Stanforder [id number] 2 Aida L Kehrer 10/21/2022 1 [facility] [id number] Chaparro Luis Kehrer [id number] 2 Aida L Kehrer 01/27/2023 1 [facility] [id number] Chaparro Lius Kehrer [id number] 2 Aida L Kehrer 10/22/2023 1 [facility] [id number] Chaparro Luis Kehrer [id number] 2 Aida L Kehrer 11/10/2024 1 [facility] [id number] Chaparro Luis Kehrer [id number] 2 Aida L Kehrer Notes Date Note Type Note Provider Name and Address Organization Details Recorded Time 09/24/2021 text/html Annual GYNReport ed bypatient.Menstrual cycle:Perimenopausal Urinary symptoms:No hematuria; No incontinence Vulva:No genital lesion Vagina:Normal vaginal discharge Breast:No breast pain; No breast lump; No nipple discharge Current Contraception:Monoga mous relationship; Oral contraceptives Sexual complaints:No sexual complaints; No pain during intercourse; Normal libido Menopausal Symptoms:No menopausal symptoms; Normal vaginal lubrication Psychological symptoms:No depression; No anxiety; No PMDD Preventive measures:Encourage self breast examination; Encourage regular exercise; Encourage no tobacco use; Encourage regular mammograms starting age 40; History of abnormal pap smear/cervical dysplasia; Needs to schedule mammogram; Needs to schedule colonoscopy HUGO Velez [address], [place], [address], [facility] 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.Menopausal Symptoms:normal vaginal lubrication;hot flashes;insomnia due to night sweats Vaginal Bleeding:history of menopause having occurred; no history of post menopausal bleeding Urinary Symptoms:no hematuria; no incontinence; no nocturia; no urinary frequency Vulva:no genital lesion; no vulvar atrophy Vagina:normal vaginal discharge; no vaginal atrophy Breast:no breast lump; no nipple discharge; no breast pain Sexual Complaints:no sexual complaints Psychological Symptoms:no depression; no anxiety Preventive Measures:encourage regular mammograms starting age 40; encourage self breast examination; encourage regular exercise; encourage no tobacco use; needs to schedule mammogram (Has it scheduled.); history of recent colonoscopy [address], [place], [address], [facility] 10/21/2022 10:45:00 01/27/2023 text/html Here today for medication check of HRT. [address], [place], [address], [facility] 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.Menopausal Symptoms:no menopausal symptoms; normal vaginal lubrication Vaginal Bleeding:history of menopause having occurred; no history of post menopausal bleeding Urinary Symptoms:no hematuria; no incontinence; no nocturia; no urinary frequency Vulva:no genital lesion; no vulvar atrophy Vagina:normal vaginal discharge; no vaginal atrophy Breast:no breast lump; no nipple discharge; no breast pain Sexual Complaints:no sexual complaints Psychological Symptoms:no depression; no anxiety Preventive Measures:encourage regular mammograms starting age 40; encourage self breast examination; encourage regular exercise; encourage no tobacco use; needs to schedule mammogram; history of recent colonoscopy Subha Monk, [facility] [address], [place], [address], [facility] 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.Menopausal Symptoms:no menopausal symptoms; normal vaginal lubrication Vaginal Bleeding:history of menopause having occurred; no history of post menopausal bleeding Urinary Symptoms:no hematuria; no incontinence; no nocturia; no urinary frequency Vulva:no genital lesion; no vulvar atrophy Vagina:normal vaginal discharge; no vaginal atrophy Breast:no breast lump; no nipple discharge; no breast pain Sexual Complaints:no sexual complaints Psychological Symptoms:no depression; no anxiety Preventive Measures:encourage regular mammograms starting age 40; encourage self breast examination; encourage regular exercise; encourage no tobacco use Patient presents for annual well woman exam. Patient denies concerns today. Angela barr, [facility] 11/10/2024 11:04:44 OBGyn Episode Ob Episode Information Episode Created Date Number of Fetuses Patient Bloodtype Patient rh Status Prepregnancy Weight lbs Domestic Partner Domestic Partner Phone Father Name Marriage Counselor Minister Status 09/15/19 21 1 CLOSED Fetus Data First Name Last Name Admitted to NICU Weight (g) Sex Living Outcome Pediatric Complications Fetus ID Race Codes Race Delivery Type Full Term [id number] Primary Hilton Calculation Initial Hilton Date Initial Exam Date Initial Exam Provider Initial Ultrasound Date Last Menstrual Period Date Ultra Sound Weeks Gestation 0 Eighteen To Twenty Week Hilton Update Ultra Sound Date Fundal Height At Umbil Quickening Date Ultra Sound Latest Weeks Gestation Final Hilton Confirmed By Final Hilton Confirmed Date Final Hilton Date Ultra Sound Latest Days Gestation 0 0 Menstrual History Last Menstrual Date Menses Monthly On Bcp Conception Prior Menses Frequency Hcg Plus Date Menarche Onset Age Delivery Information Delivery Date Delivery Type Labor Anesthesia Weeks Gestation Incision Type Labor Labor Length Hrs Delivered By Post Complications Tubal Sterilization Discharge Date Comments 0 Discharge Information Feeding Method Contraceptive Method Maternal HG B and HCT Levels Ob Episode Information Episode Created Date Number of Fetuses Patient Bloodtype Patient rh Status Prepregnancy Weight lbs Domestic Partner Domestic Partner Phone Father Name Marriage Counselor Minister Status 09/15/19 21 1 CLOSED Fetus Data First Name Last Name Admitted to NICU Weight (g) Sex Living Outcome Pediatric Complications Fetus ID Race Codes Race Delivery Type Full Term [id number] Primary Hilton Calculation Initial Hilton Date Initial Exam Date Initial Exam Provider Initial Ultrasound Date Last Menstrual Period Date Ultra Sound Weeks Gestation 0 Eighteen To Twenty Week Hilton Update Ultra Sound Date Fundal Height At Umbil Quickening Date Ultra Sound Latest Weeks Gestation Final Hilton Confirmed By Final Hilton Confirmed Date Final Hilton Date Ultra Sound Latest Days Gestation 0 0 Menstrual History Last Menstrual Date Menses Monthly On Bcp Conception Prior Menses Frequency Hcg Plus Date Menarche Onset Age Delivery Information Delivery Date Delivery Type Labor Anesthesia Weeks Gestation Incision Type Labor Labor Length Hrs Delivered By Post Complications Tubal Sterilization Discharge Date Comments 6 Discharge Information Feeding Method Contraceptive Method Maternal HG B and HCT Levels
--- OUTSIDE RECORDS SUMMARY | 2024-12-29 09:27 | XMS_ITS | Referral Summary ---
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 Gender Identity Female 02/15/2023 6:23 PM CDT Sexual Orientation Not on file Plan of Treatment Not on file Procedures Procedure Name Priority Date/Time Associated Diagnosis Comments SCREENING MAMMOGRAM BILATERAL W EDDA Schedule Routine, Read Routine (OP Routine) 03/16/2024 10:45 AM CDT Screening mammogram, encounter for from Last 3 Months or Most Recently Relevant to Health Maintenance Results * Screening Mammogram Bilateral W Edda (03/16/2024 10:45 AM CDT) Anatomical Region Laterality Modality Breast Bilateral Mammography Narrative 03/17/2024 3:42 PM CDT Mammogram Technique: Bilateral Digital Breast Tomosynthesis, Bilateral C-view 2D Screening mammogram. Views obtained: bilateral craniocaudal and bilateral mediolateral oblique. Computer Aided Detection was performed. Mammogram Findings: The present examination has been compared to prior imaging studies performed at [facility] on 12/07/2020, 01/16/2022 and 02/16/2023. The breasts are almost entirely fatty. There is no suspicious abnormality in either breast. Impression: There is no mammographic evidence of malignancy. Annual screening mammography is recommended. OVERALL FINAL ASSESSMENT: BI-RADS CATEGORY 1: Negative. Procedure Note Aracelis Ellison MD - 03/17/2024 Mammogram Technique: Bilateral Digital Breast Tomosynthesis, Bilateral C-view 2D Screening mammogram. Views obtained: bilateral craniocaudal and bilateral mediolateral oblique. Computer Aided Detection was performed. Mammogram Findings: The present examination has been compared to prior imaging studies performed at [facility] on 12/07/2020, 01/16/2022 and 02/16/2023. The breasts are almost entirely fatty. There is no suspicious abnormality in either breast. Impression: There is no mammographic evidence of malignancy. Annual screening mammography is recommended. OVERALL FINAL ASSESSMENT: BI-RADS CATEGORY 1: Negative. us Self Screening Mammogram IMG MAMMO PROCEDURES Fi nal Result from Last 3 Months or Most Recently Relevant to Health Maintenance Insurance [facility] Member Subscriber Plan / Payer (Ef fective 2018-Present) Name:Fartun Jung Relation to Subscriber:Self Name:FARTUN JUNG Payer ID:[id number] (NAIC) Type:[employer] HMO/PPO Address: [facility] [address] [place] [address] [facility] [employer] Care Teams Molder Vacuum Relationship Specialty Start Date End Date Silva Garcia MD PCP - General 08/17/18
--- OUTSIDE RECORDS SUMMARY | 2024-12-29 09:27 | XMS_ITS | Clinical Summary ---
Author Organization [place] [id number] [facility] Address [address] [place] [address] Care Team Providers Care Appeals Writer Name Role Phone Silva Garcia MD Primary Care Provider [phone] Surgical History Surgery Date Site/Laterality Comments [place] DELIVERY ONLY Section - (Added by TW Conv) Medical History Medical History Date Comments Other abnormal and inconclus estefani findings on diagnostic imaging of breast Mammogram abnormal - ( Added by Conv) Family History Medical History Relation Name Comments Breast cancer Mother Adenocarcinoma of breast - (Added by Conv) Relation Name Status Comments Mother Social History Tobacco Use Types Packs/Day Years Used Date Smoking Tobacco: Never Comments Unknown Sex and Gender Information Value Date Recorded Sex Assigned at Not on file 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 Gender Identity Female 02/15/2023 6:23 PM CDT Sexual Orientation Not on file Obstetrics History Plan of Treatment Health Maintenance Due Date Last Done Comments Cervical Cancer Screening 1969 Colon Cancer Screening-Colonoscopy 1969 Depression Screening 1969 Hepatitis C Screening 1969 DTaP/Tdap/Td Vaccine (1 - Tdap) 1980 Hepatitis B Screening 1987 Regular Well Visit/Exam 18-64 1987 Zoster Vaccine (1 of 2) 2019 Breast Cancer Screening-Mammogram 03/16/2025 03/16/2024, 02/16/2023, 01/16/2022, Additional history exists Influenza Vaccine (Season Ended) 2025 06/17/2019, 07/16/2018, 06/04/2017 Pneumococcal vaccine <65 Aged Out No longer eligible based on patient's age to complete this topic Procedures Procedure Name Priority Date/Time Associated Diagnosis Comments SCREENING MAMMOGRAM BILATERAL W JUAN RAMON Schedule Routine, Read Routine (OP Routine) 03/16/2024 10:45 AM CDT Screening mammogram, encounter for from Last 3 Months or Most Recently Relevant to Health Maintenance Results * Screening Mammogram Bilateral W Juan Ramon (03/16/2024 10:45 AM CDT) Anatomical Region Laterality Modality Breast Bilateral Mammography Narrative 03/17/2024 3:42 PM CDT Mammogram Technique: Bilateral Digital Breast Tomosynthesis, Bilateral C-view 2D Screening mammogram. Views obtained: bilateral craniocaudal and bilateral mediolateral oblique. Computer Aided Detection was performed. Mammogram Findings: The present examination has been compared to prior imaging studies performed at [facility] on 12/07/2020, 01/16/2022 and 02/16/2023. The breasts [...] compared to prior imaging studies performed at [facility] on 12/07/2020, 01/16/2022 and 02/16/2023. The breasts are almost entirely fatty. There is no suspicious abnormality in either breast. Impression: There is no mammographic evidence of malignancy. Annual screening mammography is recommended. OVERALL FINAL ASSESSMENT: BI-RADS CATEGORY 1: Negative. us Self Screening Mammogram IMG MAMMO PROCEDURES Fi nal Result from Last 3 Months or Most Recently Relevant to Health Maintenance Insurance [employer] CIGNA CIGNA Care Teams Appeals Writer Relationship Specialty Start Date End Date Silva Garcia MD PCP - General 08/17/18
[2024-12-29 20:20] LABS: Free T4 Free Thyroxine 0.89 ng/dL (0.78-2.19)
[2024-12-29 21:19] LABS: LDL Cholesterol Direct 88 mg/dL
[2024-12-29 21:21] LABS: Alanine Aminotransferase 23 U/L (6-35); Albumin Level 4.2 g/dL (3.5-5.1); Alkaline Phosphatase 119 U/L (38-126); Anion Gap 10 mmol/L (4-12); Aspartate Amino Transferase 29 U/L (14-36); Bilirubin,Total 0.4 mg/dL (0.2-1.3); Blood Urea Nitrogen 13 mg/dL (7-17); Carbon Dioxide 24 mmol/L (22-30); Chloride 108 mmol/L (98-107); Cholesterol 176 mg/dL (0-200); Estimated Glomerular Filt Rate > 60; Glucose 84 mg/dL (65-110); HDL Direct 50 mg/dL; Potassium 4.1 mmol/L (3.4-5.0); Sodium 142 mmol/L (137-145); Triglycerides 60 mg/dL (<150)
== END 2024-12-29 09:09 | disposition home or self-care (01) ==
PROVIDERS: PCP Family Medicine; Visit Provider Student in an Organized Health Care Education/Training Program
DX: Z13.220 Encounter for screening for lipoid disorders (principal); R53.83 Other fatigue
CPT/HCPCS: 36415; 80053; 80061; 84439; 84443

== ENCOUNTER 2024-12-29 14:58 | Outpatient (CLI) | payer OTHER, SELFPAY ==
--- NOTE | ~2024-12-29 | XR_ITS ---
XR shoulder RT min 2V 12/29/2024 15:08 Indication: Right shoulder Procedure: 4 views right shoulder Comparison: 08/15/2022 Findings: There is mild polyarticular osteoarthritis. No fracture or traumatic malalignment. No soft tissue abnormality. No foreign bodies. Impression: 1: Mild polyarticular osteoarthritis. Reviewed, dictated and finalized at location A. Impression: 1: Mild polyarticular osteoarthritis.
== END 2024-12-29 14:59 | disposition home or self-care (01) ==
LOC: MICIMG 14:59
PROVIDERS: PCP Family Medicine; Visit Provider Student in an Organized Health Care Education/Training Program
DX: M25.511 Pain in right shoulder (principal)
CPT/HCPCS: 73030

== ENCOUNTER 2025-02-09 03:38 | Day surgery (SDC) | payer OTHER, SELFPAY ==
[2025-01-30 09:53] VITALS: BMI 28.1
--- OUTSIDE RECORDS SUMMARY | 2025-02-09 03:41 | XMS_ITS | Clinical Summary ---
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 The [...] compared to prior imaging studies performed at [facility] on 12/07/2020, 01/16/2022 and 02/16/2023. The [...] Maintenance Insurance CIGNA CIGNA CIGNA Care Teams Mate First Relationship Specialty Start Date End Date Silva Garcia MD PCP - General 08/17/18
--- OUTSIDE RECORDS SUMMARY | 2025-02-09 03:41 | XMS_ITS | Referral Summary ---
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 The breasts [...] compared to prior imaging studies performed at [facility] on 12/07/2020, 01/16/2022 and 02/16/2023. The breasts are almost entirely fatty. There is no suspicious abnormality in either breast. Impression: There is no mammographic evidence of malignancy. Annual screening mammography is recommended. OVERALL FINAL ASSESSMENT: BI-RADS CATEGORY 1: Negative. us Self Screening Mammogram IMG MAMMO PROCEDURES Fi nal Result from Last 3 Months or Most Recently Relevant to Health Maintenance Insurance [facility] C[facility]NA Care Teams Artist Manager Relationship Specialty Start Date End Date Silva Garcia MD PCP - General 08/17/18
--- OUTSIDE RECORDS SUMMARY | 2025-02-09 03:41 | XMS_ITS | Data Portability ---
Author Organization [facility] [place] Address [address] [place] [address] Care Team Providers Care Computer Installer Name Role Phone PERLA RAMON Primary Care Provider Assessment Encounter Date Assessment Date Assessment LastModified [...] a year unless there are new symptoms. [email or web address] Not available 11/10/2024 10:32:57 Plan of Treatment Reminders Order Date Submit Date Provider Last Modified By Organization Details Last Modified Time Details Appointments None recorded. Lab pap, IG + HR HPV - HPV regardless but if HPV is positive need subtyping 16,18/45 2024 025 [facility] (Lab), [address], [place], [address], 15:41:43 TSH, serum or plasma 2021 022 [facility] (Lab), [address], [place], [address], 2 03:06:24 hormone panel, serum or plasma 2021 022 [facility] (Lab), [address], [place], [address], 2 03:06:24 Referral None recorded. Procedures colonoscop y procedure (PROC) 2024 025 [facility], [address], [address], [place], [address], 5 11:19:36 Surgeries None recorded. Imaging MAMMO, screening, digital, bilateral 2024 025 [facility], [id number], [place], [address], 5 04:02:51 MAMMO, screening, bilateral [address], [id number], [place], [address], 5 09:13:01 Medication Orders Prempro 0.3 mg-1.5 mg tablet 2022 023 [email or web address] [facility], [address], [place], [address], 3 12:05:45 Patient TargetsNo targets recorded. 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 Not Available [facility] (Lab) [address], [place], [address], 10/01/2021 16:11:47 12/24/19 22 12/23/2021 TSH, REFLE X FREE T4 TSH 2.00 uIU/m L 0.30-5 .33 Not Available [facility] (Lab) [address], [place], [address], 12/24/2021 03:06:24 12/24/19 22 12/23/2021 FSH, LH, [...] 561-2 1280 pg/mL 3rd Trime ster8 525-> 51354 pg/mL Not Available [facility] (Lab) [address], [place], [address], 12/24/2021 03:06:24 12/24/19 22 12/23/2021 FSH, LH, [...] use: 25.8- 134.8 mIU/m L Not Available [facility] (Lab) [address], [place], [address], 12/24/2021 03:06:24 12/24/19 22 12/23/2021 FSH, LH, ESTRA DIOL LH 50.2 mIU/m L This assay was perfo rmed using [employer] ratio n reage nts and test kits. Value s obtai shakira with other assay metho ds or kits canno t be used inter [facility] . 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 Order ing Locat ion: [place] Patho logy [...] Elect bharat lutz bryce d by Robin Paze on 2023 at 8:42 AM ----- ----- [...] roni (if appli cable ): Not Available [facility] (Lab) [address], [place], [address], 10/28/2023 09:46:05 11/11/19 25 11/10/2024 IMAGE GUIDE D PAP AND HPV REGAR DLESS image guided Pap, HPV regardless of Pap result SEE RESULT S BELOW CASE REPOR T: Cytol ogy Gynec ologi neal Repor t Case: [id number] Autho aman durham Provi eloisa: Dermo dy, [place] , ANP, LIFE SCIENCE TEACHER Colle cted: 11/10 1048 Order ing Locat [...] as clini gutierrez gutiérrez nted. Not Available [facility] (Lab) [address], [place], [address], 11/15/2024 15:41:43 01/17/20 22 01/16/2022 MAMMO , scree jaky, bilat eral No observ ation record ed. [facility] [address] [place] [address], [address], 01/31/2022 11:41:58 Result Notes None recorded. Problems Name Problem SNOMED Code Status Onset Date Resolution Date Notes Provider Name and Address Organization Details Recorded Time Screenin g for malignan t neoplasm of cervix Completed 201109/23/2021 Pap Smear;Pra ctice ID: 0001 Stacie barr [facility] 2 19:53:58 Screenin g for malignan t neoplasm of rectum Completed 201109/23/2021 Screening for malignant neoplasms of the rectum;Pr actice ID: 0001 Stacie barr [facility] 2 19:54:01 Irregula r periods [id number] Completed 201209/23/2021 Irregular menstrual cycle;Pra ctice ID: 0001 Stacie barr [facility] 2 19:53:38 Speciali zed medical examinat ion Completed 201209/23/2021 Routine gynecolog ical examinati on;Practi ce ID: 0001 Stacie barr [facility] 2 19:54:10 Noninfla mmatory cervical disorder 069829478 Completed 201309/23/2021 Other specified noninflam matory disorders of cervix;Pr actice ID: 0001 Stacie barr [facility] 19:53:43 Premenop ausal menorrha bianka Completed 201309/23/2021 Premenopa usal menorrhag ia;Practi ce ID: 0001 Stacie barr [facility] 19:53:55 Pre-surg kole evaluati on Completed 201309/23/2021 Pre-opera tive examinati on, unspecifi ed;Practi ce ID: 0001 Stacie barr [facility] 19:53:51 Uterine leiomyom a 86620156 Completed 201309/23/2021 Leiomyoma of uterus, unspecifi ed;Practi ce ID: 0001 Stacie barr [facility] 19:54:13 Postoper ative follow-u p visit Completed 201309/23/2021 Follow Up Surgery;Octavio bhakta ID: 0001 Stacie barr [facility] 2 19:53:48 Overweig ht [id number] Completed 201409/23/2021 Overweigh t;Practic e ID: 0001 Stacie barr [facility] 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 2 19:54:07 Atypical squamous cells of undeterm ined signific ance on cervical Papanico laou smear [id number] Completed 201809/23/2021 Atyp squam cell of undet signfc cyto smr crvx (ASC-US); Practice ID: 0001 Stacie Mcdonald [facility] 2 19:53:25 Benign neoplasm of skin of trunk 87372685 Completed 201709/23/2021 Other benign neoplasm of skin of trunk;Pra ctice ID: 0001 Stacie Mcdonald [facility] 2 19:53:27 Finding by site Completed 201709/23/2021 Dermatiti s, unspecifi ed;Practi ce ID: 0001 Stacie Mcdonald [facility] 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 [address] 19:53:[address] Concept Completed 201709/23/2021 Encntr for general adult medical exam w/o abnormal findings; Recorded Elsewhere : No Locati on: [facility] So urce: EHR Chron ic: N Practic e ID: 0001 Bill able Time: 08:30:00 AM Stacie Mcdonald [facility] 2 19:54:03 Disorder of skin and/or subcutan eous tissue 86087484 Completed 201709/23/2021 Disorder of the skin and subcutane ous tissue, unspecifi ed;Record ed Elsewhere : No Locati on: [facility] So urce: EHR Chron ic: N Practic e ID: 0001 Bill able Time: 02:00:00 PM Stacie Mcdonald [facility] 2 19:53:32 Body mass index 25-29 - overweig [id number] Completed 201709/23/2021 Body mass index (BMI) 29.0-29.9 , adult;Rec orded Elsewhere : No Locati on: [facility] So urce: EHR Chron ic: N Practic e ID: 0001 Bill able Time: 08:30:00 AM [facility] 19:53:29 Problem Notes None recorded. Procedures Surgical History Date Name Laterality Status Provider Name and Address Organization Details Recorded Time 10/22/19 24 Date of Last Pap Smear completed [facility] 10/22/2023 11:30:31 08/31/19 14 hysteroscopy completed [facility] 09/15/2020 09:27:40 08/31/19 11 biopsy of breast completed [facility] 09/15/2020 09:27:03 08/31/18 92 LEEP completed [facility] 10/22/2023 11:31:52 Imaging Results None recorded. Procedure Notes None recorded. Medical Equipment None [...] route every day 06/25 completed Prescrib ed Zinaher e: No Locat ion: [facility] M odify By: gmedical Encount er DateTime [...] ed Elsewher e: No Locat ion: [facility] M odify By: edical Encount er DateTime : 12/12/19 12 08:43:12 [...] Prescrib ed Elsewher e: Yes [facility] M odify By: edical Encount er DateTime : 12/23/19 12 08:30:00 AM Not Available Not Available Not Available Flublok Quad (PF) 180 mcg (45 mcg x 4)/0.5 mL IM syringe PHARMACY ADMINIST ERED 09/17 completed Not Available Not Available Not Available Vitals Date Recorded Systolic blood pressure Diastolic blood pressure Provider Name and Address Organization Details Last Updated DateTime 09/24/2021 124 mm[Hg] 80 mm[Hg] Subha Monk, [facility]- [address], [place], [address], [facility] 09/24/2021 10:32:45 Date Recorded Body height Body mass index (BMI) Body weight Systolic blood pressure Diastolic blood pressure Provider Name and Address Organization Details Last Updated DateTime 09/24/2021 162.56 cm 31.4 kg/m2 07506.4 g 140 mm[Hg] 80 mm[Hg] Stacie Mcdonald [facility] 01/25/202 2 10:02:31 Date Recorded Systolic blood pressure Diastolic blood pressure Provider Name and Address Organization Details Last Updated DateTime 10/21/2022 126 mm[Hg] 78 mm[Hg] Subha Monk [facility] [address], [place], [address], [facility] 10/21/2022 10:42:33 Date Recorded Body height Body mass index (BMI) Body weight Provider Name and Address Organization Details Last Updated DateTime 10/21/2022 162.56 cm 33.6 kg/m2 16927.1 g Ursula Leal [facility] 10/21/2022 09:54:08 Date Recorded Body height Body mass index (BMI) Body weight Systolic blood pressure Diastolic blood pressure Provider Name and Address Organization Details Last Updated DateTime 10/22/2023 162.56 cm 33.4 kg/m2 94961.08 g 113 mm[Hg] 74 mm[Hg] Blanca Medina [facility] 4 11:29:33 Date Recorded Body height Body mass index (BMI) Body weight Systolic blood pressure Diastolic blood pressure Provider Name and Address Organization Details Last Updated DateTime 11/10/2024 162.56 cm 30.7 kg/m2 58450.32 g 139 mm[Hg] 80 mm[Hg] Angela Pope [facility] 5 10:38:46 Date Recorded Systolic blood pressure Diastolic blood pressure Provider Name and Address Organization Details Last Updated DateTime 01/27/2023 130 mm[Hg] 80 mm[Hg] Subha Monk [facility] [address], [place], [address], [facility] 01/27/2023 12:14:35 Date Recorded Body height Body mass index (BMI) Body weight Provider Name and Address Organization Details Last Updated DateTime 01/27/2023 162.56 cm 33.5 kg/m2 25626.51 g Blanca Medina [facility] 01/27/2023 12:05:13 Social History Question Answer Notes LastModified by Organizat ion Details LastModified Time Tobacco Smoking Status Never Smoker Marlene Sawyer [facility] 01/27/2023 12:00:09 Do You Have An Advance Directive? Yes [email or web address] Information n ot available 11/10/2024 How Many Years Have You Consumed Alcohol? 35 [email or web address] Information not available 11/10/2024 Are You Blind [...] Or The Highest Degree You Have Received? [id number] Information not available 09/24/2021 How Many Days Of Moderate To Strenuous Exercise, Like A Brisk Walk, Did You Do In The Last 7 Days? 1 [email or web address] Information not available 01/27/2023 On Those Days That You Engage In Moderate To Strenuous Exercise, How Many Minutes, On Average, Do You Exercise? 60 Information not available 01/27/2023 Are There Any Guns Present In Your Home? No Information not available 09/24/2021 Have You Ever Been Counseled For Unhealthy Alcohol Use? No [email or web address] Information not available 01/27/2023 Do You Use Protection During Sex? No Information not available 09/24/2021 Do You Use Your Seat Belt Or Car Seat Routinely? Yes Information not available 09/23/2021 Do You Have Smoke And Carbon Monoxide Detectors In Your Home? Yes Information not available 09/23/2021 How Much Tobacco Do You Smoke? No Information not available 09/24/2021 Do You Use Sunscreen Routinely? Yes Information not available 09/23/2021 Has Tobacco Cessation Counseling Been Provided? No Information not available 01/27/2023 Have You Used IV Drugs? No Information not available 09/24/2021 How Many Days In The Past Year Have You Consumed 4 Or More Drinks? 0 [email or web address] Information not available 01/27/2023 Sex: Unknown Functional Status Question Answer Note LastModified by Organizat ion Details LastModified Time Do you use any illicit or recreational drugs? No Information not available 09/17/2020 Do you or have you ever used any other forms of tobacco or nicotine? No [email or web address] Information not available 01/27/2023 What is your level of alcohol consumption? Occasional Information not available 09/17/2020 Are you able to walk? YESWOREST Information not available 09/23/2021 What is your occupation? Retired Information not available 10/22/2023 What is your exercise level? Moderate [email or web address] Information not available 11/10/2024 Mental Status Question Answer Note LastModified by Organization D etails LastModified Time Do you feel stressed (tense, restless, nervous, or anxious, or unable to sleep at night)? [id number] Information not available 09/24/2021 Family History Relationship Description Onset Age of this Age Resolved Age Notes LastModified by Organization Details LastModified Time Mother Carcinoma in situ of breast [email or web address] Not available 2024 10:29:08 Mother Lumpectomy of breast Not available 2024 10:29:08 Mother Diabetes mellitus Not available 2020 09:26:10 Mother Retinal detachment [email or web address] Not available 11/10 10:29:08 Mother Myocardial infarction [email or web address] Not available 10/21 09:54:21 Mother Malignant tumor of breast [email or web address] Not available 2022 09:54:22 Paternal Grandmother Carcinoma in situ of breast [email or web address] Not available 2024 10:29:08 Father Hypertensive disorder [...] SNOMED-CT Code Diagnosis ICD10 Code Diagnosis Note [id number] Subha Monk , [facility] [address] [address] 09/17/2020 10:07:20 09/17/2020 10:54:25 Gynecologic examination 03938974 Z01.419 Take Calcium with Vitamin D 12-1500mg daily. Do monthly self breast exams. It is advised to get annual flu shot in the fall and she could obtain at [facility] or [facility] care clinic. If you haven't received [...] further options at that time. She agrees. [id number] Subha Monk [facility] [address],[facility] [address] 09/24/2021 09:49:22 09/24/2021 10:48:16 Gynecologic examination 30206796 Z01.419 Take Calcium with Vitamin D 12-1500mg daily. Do monthly self breast exams. It is advised to get annual flu shot in the fall and she could obtain at [facility] or [facility] care clinic. If you haven't received [...] d. Will consider moving forward. Irregular periods 402022 07 N92.6 D/C OCP's.Comp lete labs to assess ovarian function x 90d. [id number] Subha Monk [facility] [address] [address] 10/21/2022 09:33:13 10/21/2022 11:16:44 Gynecologic examination 31126562 Z01.419 Z11.51 Take Calcium with Vitamin D 12-1500mg daily. Do monthly self breast exams. It is advised to get annual flu shot in the fall and she could obtain at [facility] or [facility] clinic. If you haven't received the [...] moving forward.Salma perez UTD PCP Menopausal symptom 74871 002 N95.1 We discussed Menopausal Hormone therapy [...] migraine w/ visual changes, breast cancer dx, OR/stroke, DVT/PE, Endometria l cancer. Please contact office with any new or worsening side effects or adverse reactions. Or if a medical emergency please go to nearest ED/[facility] care for further evaluation . RTO x 3mos med check [id number] JOVANA [facility] [address] [address] 10/22/2023 11:20:58 10/22/2023 12:00:45 Gynecologic examination 90107009 Z01.419 Z11.51 Take Calcium with Vitamin D 12-1500mg daily. Do monthly self breast exams. It is advised to get annual flu shot in the fall and she could obtain at [facility] or [facility] care clinic. If you haven't received [...] forward.Salma perez UTD PCP Screening mammography 24 559883 Z12.31 [id number] Subha Monk [facility] [address] [address] 01/27/2023 11:59:02 01/27/2023 12:19:06 Menopausal symptom 33686962 N95.1 Today we reviewed medication HRT.She ran out 10 days ago & has decided that she does not feel it has changed anything that much.Her vasomotor sx's are minimal and she feels she would like to d/c this at this time.If over time feels this medication did more than what she thought she is welcome to contact us and we can send out some RFs as long as it is within the year.Monit or for nowKeep menopausal diary. Time spent in visit is a total of 15 mins with at least 50% of visit consisting of counseling and review of plan of care. [id number] Ángel Landin MD [place] [address] [address] 11/10/2024 10:28:51 11/10/2024 11:03:21 Gynecologic examination 58456344 Z01.419 Annual gynecologi neal exam performed. Patient [...] due; GI referral for colonoscop y to [facility] DEXA scan- n/a Pap smear- pap w/ HPV collected laboratory evaluation - PCP STI testing - declined Screening mammography 24 043241 Z12.31 Screening for malignant neoplasm of colon 534571054 Z12.11 Health Concerns Section Related Observation LastModified by Organization Detai ls LastModified Time None Recorded Concern Status LastModified by Organization Details LastModified Time None Recorded Advance Directives Directive Y: Payers Insurance Date Sequence Insurance Name Policy Number Policy Ortiz Covered Member ID Ortiz Member ID Guarantor Name 11/08/2024 1 RAJANI [id number] Chaparro Jung [id number] Aida Jung Notes Date Note Type Note Provider Name [...] to schedule mammogram; Needs to schedule colonoscopy Subha Monk, [facility]- [address], [place], [address], [place] [facility] 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 10/21/2022 10:45:00 01/27/2023 text/html Here today for medication check of HRT. [address], [place], [address], [facility] 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 Patient denies concerns today. Angela barr [facility] 11/10/2024 11:04:44 OBGyn Episode Ob Episode Information Episode Created Date Number of Fetuses Patient Bloodtype Patient rh Status Prepregnancy Weight lbs Domestic Partner Domestic Partner Phone Father Name Marriage Therapist Status 09/15/19 21 1 CLOSED Fetus Data First Name Last Name Admitted to NICU Weight (g) Sex Living Outcome Pediatric Complications Fetus ID Race Codes Race Delivery Type Full Term [id number] Primary Hilton Calculation Initial Hilton Date Initial Exam Date Initial Exam Provider Initial Ultrasound Date Last Menstrual Period Date Ultra Sound Weeks Gestation 0 Eighteen To Twenty Week Hitlon Update Ultra Sound Date Fundal Height At [...] Partner Domestic Partner Phone Father Name Marriage Therapist Status 09/15/19 21 1 CLOSED Fetus Data [...]
[2025-02-09 07:15] VITALS: BP 131/67; PULSE 86; RESP 12; TEMP 36.2; O2SAT 100
[2025-02-09] MEDS: LACTATED RINGERS 1,000 ML 150 ML IV CONT (07:23)
--- NOTE | 2025-02-09 08:03 | WPDANESEPPF ---
Anes - Initial Pre Proc Eval Procedure: Operation Date: 02/09/25 08:30 Proposed Procedures p Screening Colonoscopy - German Murphy MD Date/Time: 02/09/25 08:03 Surgeon: German Murphy MD Pre Op Diagnosis: Encounter for screening for malignant neoplasm of Patient Data Age: 54 Gender: F Height: 1.68 m Weight: 76.3 kg Last Vital Signs Temp 97.2 F L 02/09/25 07:15 Pulse 86 02/09/25 07:15 Resp 12 02/09/25 07:15 BP 131/67 02/09/25 07:15 Pulse Ox 100 02/09/25 07:15 O2 Del Method Room Air 02/09/25 07:15 Allergies Allergy/AdvReac Type Severity Reaction Status Date / Time No Known Allergies Allergy Unknown Verified 02/09/25 07:14 Home Medications ?Medication ?Instructions ?Recorded ?Confirmed ?Type multivitamin with minerals-folic 1 tablet PO 11/02/23 12/27/24 History acid 0.4 mg tablet (One-A-Day Women's 50 Plus) Patient hx anesthesia problems: none Family hx anesthesia problems: none Results Review: All pre-operative results and documents have been reviewed as part of the pre-operative evaluation. [facility] Past Medical History Medical History Arm pain, right Subluxation complex (vertebral) of lumbar region Carpal tunnel syndrome on both sides Joint pain Menopause Family History Family History Mother CHF (congestive heart failure) Breast cancer Diabetes mellitus Family history of osteoarthritis Raynauds syndrome Father Family history of coronary artery disease Other Family history of malignant melanoma Family history of malignant neoplasm of breast in first degree relative Hypertension Social History Social History Smoking status: Never smoker Alcohol intake: current Alcohol use details: seldom; socially Substance use: never Substance use type: does not use Do You Feel Safe in your Home?: Yes Lack of Transportation: No Lack of Food: Never True Current Housing: I Have Housing Concerned About Future Housing: No Difficulty Paying Gas/Electric Bills: No Difficulty Paying for Meds: No Currently Unemployed: No Education: Bachelor's Degree Difficulty w/ Childcare or Family Care: No Anes - Eval Final PreProcedure Day of Procedure 02/09/25 08:03 Patient weight: overweight Heart: regular rate and rhythm Lungs: clear to auscultation Airway: Mallampati scale class II Neurological: alert and oriented Last oral intake: >/= 8 hours ASA classification: II Emergent: no Anesthetic plan: proceed Anesthesia type and monitoring: general GIVS and standard monitoring Results Review: All pre-operative results and documents have been reviewed as part of the pre-operative evaluation. Informed Consent: The patient's anesthetic plan and its attendant risks and benefits were discussed with the patient/family/POA. Questions were solicited and answers provided to the satisfaction of the patient/family/POA.
--- NOTE | 2025-02-09 08:24 | PM.HPGS ---
History of Present Illness History of Present Illness Consent: Risks, benefits, and alternatives have been discussed and questions answered. Patient agrees to proceed with procedure. Chief complaint: Encounter for screening for malignant neoplasm of Narrative: Fartun Jung is a 54 year old female here for screening colonoscopy Review of Systems Review of Systems: All systems reviewed & are unremarkable except as noted in HPI and below PMFSH Past Medical History Medical History (Updated 02/09/25 @ 08:25 by German Murphy MD) Colon cancer screening Arm pain, right Subluxation complex (vertebral) of lumbar region Carpal tunnel syndrome on both sides Joint pain Menopause Family History Family History Mother CHF (congestive heart failure) Breast cancer Diabetes mellitus Family history of osteoarthritis Raynauds syndrome Father Family history of coronary artery disease Other Family history of malignant melanoma Family history of malignant neoplasm of breast in first degree relative Hypertension Social History Social History Smoking status: Never smoker Alcohol intake: current Alcohol use details: seldom; socially Substance use: never Substance use type: does not use Do You Feel Safe in your Home?: Yes Lack of Transportation: No Lack of Food: Never True Current Housing: I Have Housing Concerned About Future Housing: No Difficulty Paying Gas/Electric Bills: No Difficulty Paying for Meds: No Currently Unemployed: No Education: Bachelor's Degree Difficulty w/ Childcare or Family Care: No Meds Home Medications and Allergies Home Medications ?Medication ?Instructions ?Recorded ?Confirmed ?Type multivitamin with minerals-folic 1 tablet PO 11/02/23 12/27/24 History acid 0.4 mg tablet (One-A-Day Women's 50 Plus) Allergies Allergy/AdvReac Type Severity Reaction Status Date / Time No Known Allergies Allergy Unknown Verified 02/09/25 07:14 Vital Signs Vital Signs - 24 hr 02/09/25 07:15 Temperature 97.2 F L Pulse Rate 86 Respiratory Rate 12 Blood Pressure 131/67 Pulse Oximetry 100 Oxygen Delivery Room Air Exam Const: General: comfortable and no acute distress HENMT: Face/Nose/Sinus: Normal nares present Eyes: General: appearance normal, both eyes and all related structures Neck: Neck: no JVD Resp: Auscultation: clear to auscultation bilaterally Cardio: Rate: regular rate Rhythm: regular rhythm GI: Inspection: non-distended GI Palp: Yes Soft to palpation Skin: General skin exam: normal color Neuro: General: gait normal Speech: normal speech Extrem: General: normal to inspection Psych: Mental Status: mental status grossly normal Assessment and Plan Assessment and plan (1) Colon cancer screening: Code(s): Z12.11 - Encounter for screening for malignant neoplasm of colon Status: Acute Assessment and Plan: colonoscopy
[2025-02-09 08:43] VITALS: BP 96/54; PULSE 67; RESP 18; O2SAT 99
[2025-02-09 08:53] VITALS: BP 107/69; PULSE 74; RESP 18; O2SAT 99
[2025-02-09 09:03] VITALS: BP 113/69; PULSE 75; RESP 18; O2SAT 100
== END 2025-02-09 09:10 | disposition home or self-care (01) ==
PROVIDERS: PCP Family Medicine; Visit Provider Internal Medicine Gastroenterology
PROC: 0DJD8ZZ Inspection of Lower Intestinal Tract, Via Natural or Artificial Opening Endoscopic (ICD-10-PCS; CPT 45378; principal; 2025-02-09 08:30)
DX: Z12.11 Encounter for screening for malignant neoplasm of colon (principal); K64.8 Other hemorrhoids; K57.30 Diverticulosis of large intestine without perforation or abscess without bleeding; M99.13 Subluxation complex (vertebral) of lumbar region; G56.03 Carpal tunnel syndrome, bilateral upper limbs; Z80.3 Family history of malignant neoplasm of breast; Z80.8 Family history of malignant neoplasm of other organs or systems; Z82.49 Family history of ischemic heart disease and other diseases of the circulatory system
CPT/HCPCS: 45378; J2003; J2704; J7120